=== PATIENT | male | born 1995 | race Caucasian/White ===

== ENCOUNTER 2024-07-04 20:00 | Emergency (ER) | payer OTHER ==
[~2024-07-04] VITALS: Ht 193 cm; Wt 121.8 kg
[2024-07-04 20:20] VITALS: BP 144/75; PULSE 111; TEMP 97.6; O2SAT 96
[2024-07-04 20:41] VITALS: RESP 18
[2024-07-04] MEDS: HYDROcodone/acetaminophen 5mg/325mg tablet PO ONE (20:41)
[2024-07-04] MEDS: ondansetron 4mg rapidly disintigrating tab PO ONE (20:45)
== END 2024-07-04 22:03 | disposition home or self-care (01) ==
LOC: ER 20:01
DX: S01.81XA Laceration without foreign body of other part of head, initial encounter (principal); S66.911A Strain of unspecified muscle, fascia and tendon at wrist and hand level, right hand, initial encounter; V29.888A Rider (driver) (passenger) of other motorcycle injured in other specified transport accidents, initial encounter; Y93.55 Activity, bike riding; Y92.89 Other specified places as the place of occurrence of the external cause; Y99.8 Other external cause status
CPT/HCPCS: 12011; 29125; 73110; 99284; A6449